=== PATIENT | female | born 1970 | race Caucasian/White ===

== ENCOUNTER 2016-11-09 10:36 | Emergency (ER) | payer OTHER ==
[2016-11-09 10:54] VITALS: BP 140/79; PULSE 82; RESP 18; TEMP 98.2; O2SAT 96
--- NOTE | 2016-11-09 11:14 | UCPHY ---
H & P Time Seen by Provider: 11/09/16 11:00 Patient Type: New HPI/ROS: CHIEF COMPLAINT: left leg swelling HISTORY OF PRESENT ILLNESS: 45-year-old female history of varicose veins, return from a plane trip to [place] 1 week ago, states that 4 days ago she woke up and noticed erythema, tenderness along 1 of her varicose veins in her left lateral calf. No history of DVT. No dyspnea. No discoloration distally. No paresthesia. No leg pain. No leg paresthesia. No chest pain. No abdominal pain. No dyspnea. No back pain. PRIMARY CARE PROVIDER:[place] Reynaldo Wall REVIEW OF SYSTEMS: A ten point review of systems was performed and is negative with the exception of the items mentioned in the HPI PHYSICAL EXAM (Prior to examination, patient consented to physical exam, hands were washed and my usual and customary physical exam procedures followed) 1) GENERAL: Well-developed, well-nourished, alert and oriented. Appears to be in no acute distress. 2) HEAD: Normocephalic 3) HEENT: sclera anicteric 4) LUNGS: Breathing comfortably. 5) SKIN: erythema following a varicose pain left lateral calf. DP PT pulses are present and brisk and equal bilaterally. Brisk capillary refill left foot. Compartments are soft. No lymphangitic streaking 6) MUSCULOSKELETAL: Compartments are soft. 7) NEUROLOGIC: Full sensation distally DIFFERENTIAL DIAGNOSIS: in no particular include but limited to DVT, superficial venous thrombus, phlebitis, cellulitis, compartment syndrome Smoking Status: Never smoked Constitutional: Initial Vital Signs Temperature (C) 36.8 C 11/09/16 10:49 Heart Rate 82 11/09/16 10:49 Respiratory Rate 18 11/09/16 10:49 Blood Pressure 140/79 H 11/09/16 10:49 O2 Sat (%) 96 11/09/16 10:49 O2 Delivery Mode Room Air Allergies/Adverse Reactions: No Known Allergies Allergy (Unverified 11/09/16 10:48) Home Medications: Medication Instructions Recorded Aspirin [Aspirin 325 mg (*)] 325 mg PO DAILY #30 tab 11/09/16 Bcp 11/09/16 CALCIUM 11/09/16 VITAMIN D 11/09/16 Xopenex 11/09/16 MDM/Departure - MDM Diagnostics: Ultrasound Venous Duplex/Doppler left Leg History: Pain and swelling. Findings: Ultrasound venous duplex and Doppler imaging of the common femoral vein, femoral vein, popliteal vein, calf veins, greater saphenous vein origin, and contralateral common femoral vein demonstrates normal compressibility, color flow, and Doppler flow without deep venous thrombosis. A superficial varicose vein is thrombosed in the lateral calf region from the knee to the mid calf without extension to the deep venous system. Impression: 1. No deep venous thrombosis left leg. 2. Left lateral calf superficial thrombophlebitis with thrombosed varicose vein. Findings and recommendations discussed with Emergency Department physician, Goldy Rangel PA-C, at 1215 hours today. Final report concurs with initial preliminary interpretation. Dictated By: Hao Figueroa Images reviewed by myself ED Course/Re-evaluation: 1:00 p.m.: Phone consultation with the interventional radiologist Dr. Doss recommended the patient continue daily aspirin, compression stockings for the next 1 month, have a follow-up ultrasound of the saphenous system at that time and if the patient develops worsening pain, she may be a candidate for ablative therapy to be coordinated by her primary care provider. - Depart Disposition: Home, Routine, Self-Care Clinical Impression: Thrombosed varicose vein Condition: Good Instructions: Peripheral Vascular Disease (ED), Varicose Veins (ED) Additional Instructions: The next 1 month take a daily aspirin 325 mg, use compression stockings above the knee, apply heat packs, keep the area elevated follow up with her primary care provider. I have consulted with the interventional radiologist Dr. Krystin Doss at [facility] and she recommends a repeat ultrasound in 1 month and if your pain is getting worse you may be a candidate for ablation of the varicose vein. If at any point you develop chest pain, shortness of breath, go to the emergency department immediately Prescriptions: Aspirin [Aspirin 325 mg (*)] 325 mg PO DAILY #30 tab Referrals: Grazyna Wall MD [Primary Care Provider] - 5-7 days, call for appt. - PQRS PQRS Measurement: Not applicable
--- NOTE | 2016-11-09 12:21 | US ---
Ultrasound Venous Duplex/Doppler left Leg History: Pain and swelling. Findings: Ultrasound venous duplex and Doppler imaging of the common femoral vein, femoral vein, pop liteal vein, calf veins, greater saphenous vein origin, and contralateral common femoral vein demonst rates normal compressibility, color flow, and Doppler flow without deep venous thrombosis. A superficial varicose vein is thrombosed in the lateral calf region from the knee to the mid calf wi thout extension to the deep venous system. Impression: 1. No deep venous thrombosis left leg. 2. Left lateral calf superficial thrombophlebitis with thrombosed varicose vein. Findings and recommendations discussed with Emergency Department physician, Goldy Rangel PA-C, at 12 15 hours today. Final report concurs with initial preliminary interpretation.
== END 2016-11-09 13:18 | disposition home or self-care (01) ==
LOC: CED 10:36
DX: I73.9 Peripheral vascular disease, unspecified (principal); I83.92 Asymptomatic varicose veins of left lower extremity
CPT/HCPCS: 93971-PO; 99203-PO; G0463-PO

== ENCOUNTER → 2017-04-29 | Outpatient (CLI) | payer OTHER | LOC: FIMAGING 12:59 | PROVIDERS: ATTEND Family Medicine | DX: Z12.31 Encounter for screening mammogram for malignant neoplasm of breast (principal) | CPT/HCPCS: G0202 ==

== ENCOUNTER → 2017-10-09 | Outpatient (CLI) | payer OTHER | LOC: FIMAGING 08:45 | PROVIDERS: ATTEND Psychiatry & Neurology Neurology | DX: M50.30 Other cervical disc degeneration, unspecified cervical region (principal); M48.02 Spinal stenosis, cervical region; M99.71 Connective tissue and disc stenosis of intervertebral foramina of cervical region; H53.9 Unspecified visual disturbance ==